=== PATIENT | male | born 1980 | race African-American/Black ===

== ENCOUNTER 2024-06-12 12:42 | Emergency (ER) | payer OTHER ==
[~2024-06-12] VITALS: Ht 175.3 cm; Wt 105.0 kg
[2024-06-12 12:47] VITALS: O2SAT 97
[2024-06-12] MEDS ORDERED: MAGNESIUM/ALUMINUM HYDROXIDE/SIMETHICONE 30ML UDC PO STA (13:02)
[2024-06-12] MEDS ORDERED: FAMO-135 MT (13:12)
[2024-06-12] MEDS ORDERED: MAG355OR21 MT (13:13)
[2024-06-12] MEDS: FAMOTIDINE 20MG TABLET PO ONE (13:45)
[2024-06-12] MEDS: MAGNESIUM/ALUMINUM HYDROXIDE/SIMETHICONE 30ML UDC PO ONE (13:45)
[2024-06-12] MEDS: ONDANSETRON HCL 4MG TABLET PO ONE (13:45)
[2024-06-12 14:12] LABS: BASOPHILS % 0.7 % (0.0-2.0); HEMATOCRIT. 43.4 % (42.0-52.0); HEMOGLOBIN. 13.8 g/dL (14.0-18.0); MEAN CORPUSCULAR HEMOGLOBIN 26.9 pg (28.0-32.0); MEAN CORPUSCULAR HGB CONC 31.7 g/dL (31.0-37.0); MEAN PLATELET VOLUME 7.8 fl (7.4-10.4); MONOCYTES % 8.2 % (2.0-8.0); NEUTROPHILS % 53.1 % (40.0-76.0); PLATELET 278 x1000/uL (130-400); WHITE BLOOD COUNT 7.5 x1000/uL (4.5-11.0)
[2024-06-12 14:18] LABS: CHLORIDE 104 mEq/L (98-107); POTASSIUM 4.7 mEq/L (3.5-5.1); SODIUM 143 mEq/L (136-145)
[2024-06-12 14:19] LABS: CALCIUM 9.3 mg/dL (8.7-10.4); CARBON DIOXIDE 31 mEq/L (21-32)
[2024-06-12 14:22] LABS: INR 0.9; PROTHROMBIN TIME 9.8 sec (9.6-11.0)
[2024-06-12 14:24] LABS: GLUCOSE 104 mg/dL (70-105); UREA NITROGEN BLOOD 13 mg/dL (9-23)
[2024-06-12 14:24] LABS: CLARITY URINE CLEAR (CLEAR); COLOR URINE YELLOW (YELLOW); GLUCOSE URINE NEGATIVE (NEGATIVE); KETONES URINE NEGATIVE (NEGATIVE); LEUKOCYTE ESTERASE URINE NEGATIVE (NEGATIVE); NITRITE URINE NEGATIVE (NEGATIVE); OCCULT BLOOD URINE NEGATIVE (NEGATIVE); PH URINE 5.5 (4.5-8.0); PROTEIN URINE NEGATIVE (NEGATIVE); SPECIFIC GRAVITY URINE 1.023 (1.005-1.030)
[2024-06-12 14:26] LABS: ALANINE AMINOTRANSFERASE 30 IU/L (10-49); ALBUMIN 4.3 g/dL (3.2-4.8); ASPARTATE AMINOTRANSFERASE 28 IU/L (<34)
[2024-06-12 14:27] LABS: BILIRUBIN TOTAL 0.4 mg/dL (0.1-1.0); PROTEIN TOTAL 7.5 g/dL (6.0-8.3)
[2024-06-12 14:57] LABS: BILIRUBIN DIRECT < 0.1 mg/dL (<=3.0)
[2024-06-12 15:03] VITALS: BP 129/88; PULSE 76; RESP 18; TEMP 36.9; O2SAT 100
== END 2024-06-12 15:04 | disposition home or self-care (01) ==
LOC: EDBD 12:42 → ER 12:42
DX: K43.9 Ventral hernia without obstruction or gangrene (principal); R10.9 Unspecified abdominal pain; E78.00 Pure hypercholesterolemia, unspecified
CPT/HCPCS: 99284; 74176; 80076; 80048; 81003; 83690; 83735; 85025; 85610; 36415; Q0162